=== PATIENT | female | born 1930 | race Caucasian/White ===

== ENCOUNTER 2017-06-05 15:33 | Observation (INO) | payer BC ==
--- NOTE | 2017-06-05 16:04 | Emergency Department Record ---
History of Present Illness - General Chief Complaint: Fall Injury Stated Complaint: FELL HIT HEAD/HIP/FOOT Time Seen by Provider: 06/05/17 15:54 Source: Patient Mode of Arrival: Stretcher Limitations: No limitations - History of Present Illness Initial Comments: The patient is here due to slipping and falling yesterday and injuring her R hip and foot. She has been hobbling around the house on it but the foot has been quite painful. She also did bump her head but there was no LOC or any neck pain. She has had no nausea, vomiting, CP, FRAZIER, SOB, or MARTINEZ. The patient is on Xarelto due to Afib per the patient's daughter but did not take it today. Today she was able to hobble to her chair in the living room and sat there all day until her daughter showed up. MD Complaint: Fall Onset/Timin -: Days(s) Fall From: Standing When Fall Occurred: 24 hours C[employer] Fall Witnessed: No Place Fall Occurred: Home Loss of Consciousness: None Prolonged Down Time?: No Symptoms Prior to Fall: None Location: Head Associated Symptoms: Denies - [place] Coma Scale Eye Response: (4) Open spontaneously Motor Response: (6) Obeys commands Verbal Response: (5) Oriented [place] Total: 15 - Related Data Allergies Allergy/AdvReac Type Severity Reaction Status Date / Time No Known Allergies Allergy none Verified 06/05/17 15:59 Travel Screening - Travel/Exposure Within Last 30 Days Have you traveled within the last 30 days?: No - Travel/Exposure Within Last Year Have you traveled outside the [place] in the last year?: No - Additonal Travel Details Have you been exposed to anyone with a communicable illness?: No - Travel Symptoms Symptom Screening: None Review of Systems Constitutional: Denies: Chills, Fever Eyes: Denies: Eye discharge ENT: Denies: Congestion Respiratory: Denies: Cough, Dyspnea Cardiovascular: Denies: Chest pain Endocrine: Denies: Fatigue Gastrointestinal: Denies: Abdominal pain Genitourinary: Denies: Dysuria Musculoskeletal: Denies: Arthralgia Past Medical History - SOCIAL HISTORY Smoking Status: Former smoker Alcohol Use: Heavy Alcohol Use Comment: highball nightly Drug Use: None - RESPIRATORY Hx Respiratory Disorders: No - CARDIOVASCULAR Hx Cardio Disorders: Yes Hx Abnormal EKG: Yes (Afib) Hx Cardiac Cath: Yes Hx Chest Pain: Yes Hx Hypertension: Yes - NEURO Hx Neuro Disorders: No - GI Hx GI Disorders: Yes Hx Ulcer: Yes - Hx Genitourinary Disorders: Yes Comment:: incontinence - ENDOCRINE Hx Endocrine Disorders: No - MUSCULOSKELETAL Hx Musculoskeletal Disorders: Yes Hx Arthritis: Yes - PSYCH Hx Psych Problems: Yes Hx Depression: Yes - HEMATOLOGY/ONCOLOGY Hx Hematology/Oncology Disorders: No Family Medical History Any Significant Family History?: No Hx Alcohol Use: Children Hx Cancer: Mother Hx Heart Disease: Father Hx HTN: Father Physical Exam - General General Appearance: Alert, Oriented x3, Cooperative, No acute distress - Head Head exam: Normocephalic. negative: Atraumatic (There is a very small bruise on the scalp from the fall yesterday.), Normal inspection - Eye Eye exam: Normal appearance, PERRL - Neck Neck exam: Normal inspection, Full ROM. negative: Tenderness (There is no Cspine tenderness.) - Respiratory Respiratory exam: Normal lung sounds bilaterally. negative: Respiratory distress - Cardiovascular Cardiovascular Exam: Normal heart sounds, Irregular rhythm. negative: Regular rate, Normal rhythm - GI/Abdominal GI/Abdominal exam: Soft, Normal bowel sounds. negative: Tenderness - Extremities Extremities exam: Tenderness (The R foot and R hip are quite tender with a large bruise to the dorsal R foot.), Other (There is a bruise to the posterior R iliac crest area.). negative: Normal inspection Image of Full Body: 1 - Mild bruising. Image of Feet: 1 - Significant bruising and swelling. - Neurological Neurological exam: Abnormal gait, Alert. negative: Motor sensory deficit, Normal gait - Skin Skin exam: negative: Erythema, Rash Course - Reevaluation(s) Reevaluation #1: The patient is doing well but does have significant bruising and swelling to her foot along with trouble walking. She lives alone and has no family to help her. I am concerned about her going home due to her walking issues along with being on Xarelto. I explained to her that I feel the best course of action is to admit her to the hospita, have PT and OT evaluated her and possibly place her in the swing bed program. I also discussed the case with Holley (AMANDA) and she did agree to admit the patient to the hospital. After thinking about it the patient did agree to the plan. 06/05/17 17:26 Reevaluation #2: The patient is doing very well at this time. She is resting comfortably and waiting on completing the admission process. 06/05/17 18:24 Medical Decision Making - Data Complexity MDM Data: Labs Ordered and/or Reviewed, X-Ray Ordered and/or Reviewed - Lab Data Result diagrams: 06/05/17 16:10 06/05/17 16:10 - Radiology Data Radiology results: Report reviewed (Head CT: No acute changes R Foot: Neg per rad. R Hip: No acute fx.) Disposition Disposition: Admit Clinical Impression: Inability to walk Disposition: Still a Patient at [facility] Decision to Admit: Admit from ER Decision to Admit Date: 06/05/17 Decision to Admit Time: 17:28 Accepting Physician: Gita Time Discussed w/Accepting Physician: 17:28 Condition: (2) Stable Forms: Patient Portal Access Time of Disposition: 17:28 Quality - Quality Measures Quality Measures: N/A - Blood Pressure Screening View Details: Yes Does Patient Have Any of the Following: No Blood Pressure Classification: Pre-Hypertensive BP Reading Systolic Measurement: 147 Diastolic Measurement: 89 Screening for High Blood Pressure: < Pre-Hypertensive BP, F/U Documented > [ [id number]] Pre-Hypertensive Follow-up Interventions: Referral to alternative/primary care provider.
[2017-06-05 16:17] LABS: HEMOGLOBIN 13.2 gm/dl (11.6-16.0); MEAN CORPUSCULAR HGB CONC 33.8 g/dl (32-36); MEAN PLATELET VOLUME 9.2 fl (7.4-10.4); PLATELET COUNT 174 K/uL (130-400); RED BLOOD COUNT 3.61 M/uL (3.80-5.40); RED CELL DISTRIBUTION WIDTH 13.5 % (11.5-14.5); WHITE BLOOD COUNT W/O DIFF 3.2 K/uL (4.2-12.2)
[2017-06-05 16:20] LABS: MEAN CORPUSCULAR HEMOGLOBIN 36.5 pg (27-33)
[2017-06-05 16:29] LABS: BLOOD UREA NITROGEN 12 mg/dL (8-23); CREATININE 0.4 mg/dL (0.5-0.9); EST GLOMERULAR FILTRATION RATE > 60 mL/min; GLUCOSE,RANDOM 99 mg/dL (74-109)
[2017-06-05 16:30] LABS: INR 1.09; PARTIAL THROMBOPLASTIN TIME 30.3 SECONDS (24.5-39.1); PROTHROMBIN TIME (PATIENT) 11.8 SECONDS (9.5-12.1)
[2017-06-05] MEDS ORDERED: LISINOPRIL 5 MG TABLET PO ONE ×2 (16:41→16:42)
[2017-06-05] MEDS ORDERED: NITROGLYCERIN 0.4MG SL TABLET #25 BTL SL SCH (19:12)
[2017-06-05] MEDS ORDERED: ALPRAZOLAM 0.25 MG TABLET PO PRN (19:12)
[2017-06-05] MEDS ORDERED: CITALOPRAM 20 MG TABLET PO SCH (19:12)
[2017-06-05] MEDS ORDERED: ACETAMINOPHEN 500 MG TABLET PO PRN (19:12)
[2017-06-06] MEDS: HYDROCODONE/APAP 5/325MG TABLET PO PRN ×2 (05:07→22:32)
--- NOTE | 2017-06-06 08:04 | CT SCAN REPORT ---
EXAM: HEAD CT WITHOUT CONTRAST HISTORY: FELL STRIKING PARIETAL SCALP. NO LOSS OF CONSCIOUSNESS. TECHNIQUE: Contiguous axial images from the cerebral convexities to the foramen magnum were obtained without contrast. Comparison: None. Encounter: Initial. Hand dominance: Left. FINDINGS: Moderate to extensive generalized atrophy of the brain. No acute intracranial hemorrhage, mass effect, or midline shift. No CT evidence of large acute territorial infarct. Mild decreased attenuation in the periventricular white matter of the cerebral hemispheres. The ventricles, basal cisterns, and sulci are within normal limits. The osseous structures are unremarkable. Bilateral lens implants. The paranasal sinuses are unremarkable. IMPRESSION: 1. NO ACUTE INTRACRANIAL PROCESS. 2. 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 JOB NUMBER: [id number] MTDD
[2017-06-06] MEDS ORDERED: NITROGLYCERIN 0.4MG SL TABLET #25 BTL SL PRN (08:15)
--- NOTE | 2017-06-06 08:32 | RADIOLOGY REPORT ---
EXAM: RIGHT FOOT, THREE VIEWS HISTORY: INJURED RIGHT FOOT DUE TO FALL, SLIPPED ON TILE DEIDRA. TECHNIQUE: Three views of the right foot were obtained. Comparison: None. Encounter: Initial. FINDINGS: Osteopenia. No acute fracture or dislocation. Moderate arthritic change at the right mid foot as well as the right third DIP. IMPRESSION: 1. NEGATIVE FOR ACUTE FRACTURE OF THE RIGHT FOOT. 2. MODERATE OSTEOARTHRITIC CHANGE OF THE MID FOOT WELL RIGHT THIRD DIP. JOB NUMBER: [id number] MTDD
--- NOTE | 2017-06-06 08:36 | RADIOLOGY REPORT ---
EXAM: RIGHT HIP, THREE VIEWS HISTORY: FALL, RIGHT HIP INJURY AND PAIN. TECHNIQUE: Three views of the right hip were obtained. Comparison: Pelvis CT 09/27/11. Encounter: Initial. FINDINGS: No fracture or dislocation. Mild right and moderate left osteoarthritic change of the femoroacetabular joints. The sacroiliac joints are intact. IMPRESSION: 1. NEGATIVE FOR ACUTE FRACTURE OF THE RIGHT HIP. 2. ARTHRITIC CHANGES OF THE FEMOROACETABULAR JOINTS, LEFT GREATER THAN RIGHT. JOB NUMBER: [id number] MTDD
[2017-06-06] MEDS: LISINOPRIL 5 MG TABLET PO SCH (10:21)
[2017-06-06] MEDS: SOTALOL HCL 80 MG TABLET PO SCH (10:22)
[2017-06-06] MEDS: EZETIMIBE 10 MG TABLET PO SCH (10:22)
[2017-06-06] MEDS: RIVAROXABAN 15 MG TABLET PO SCH (10:22)
[2017-06-06] MEDS: SIMVASTATIN 20 MG TABLET PO SCH (10:22)
--- NOTE | 2017-06-06 10:29 | Rehab Evaluation ---
Patient Information - Patient Information Diagnosis: R foot injury, inability to walk Ordered Treatment: PT Evaluate and Treat Status: Initial Evaluation Past Medical/Surgical Hx: PAST MEDICAL/SURGICAL HISTORY Past Surgical History Hysterectomy Cardiac Stent placement PMH - Respiratory Hx Respiratory Disorders No PMH - Cardiovascular Hx Cardiovascular Disorders Yes Hx Abnormal EKG Yes: Afib Hx Cardiac Catheterization Yes Hx Chest Pain Yes Hx Hypertension Yes PMH - Neuro Hx Neurological Disorders No PMH - GI Hx Gastrointestinal Disorders Yes Hx Ulcer Yes PMH - Hx Genitourinary Disorders Yes Comment: incontinence PMH - Endocrine Hx Endocrine Disorders No PMH - Musculoskeletal Hx Musculoskeletal Disorders Yes Hx Arthritis Yes PMH - Psych Hx Psychiatric Problems Yes Hx Depression Yes PMH - Hematology/Oncology Hx Hematology/Oncology No Disorders Premorbid Status: Detail (The patient prior to hospitalization was independent with ambulation without device and Independent with all mobility.) Social History: Detail (The patient lives alone in a ranch style home with 4 to 5 stairs with one railing at the enterance and a basement. The patient reports she does not usually go down into the basement.The patient's main bathroom is equipped with a with a walk in shower with grab bars and a regular toilet. The patient has a walker with wheels and two canes. The patient's laundry is on the first floor.) Precautions: [place], Fall - Time With Patient Total Time Spent With Patient (Min): 35 Treatment Procedures: Detail (Initial PT Evaluation) Subjective Information - Subjective Information Per Patient (The patient had complaints of R foot pain which she rated as 2/3 at the highest using 0 to 10 pain scale.) Objective Data - Mental Status Patient Orientation: Oriented x3 (The patient knew month, year, birthdate, age, and place.) - Visual Perception Appears within normal limits for therapeutic activities - ROM Not within normal limits (The patient's LE AROM is WNL except for R foot/ ankle due to pain ( Patient dorsiflexed to aproximately -15 degrees from nuetral) . The patient also exhibited minimal toe flexion and extension.) - Strength/Tone Not within normal limits (The patient's L LE strength was generally 4+to 5/5. The patient's R LE strength was hip musculature 4/5, hamstrings 4/5 , quadriceps 4+/5, ankle musculature 3-/5 due to pain with movement.) - Bed Mobility Independent (The patient was independent with supine to sit transfer.) - Transfers Independent (The patient was independent with sit to and from stand transfer and supervision for safety with toilet transfer with use of grab bar.) - Balance Balance Sitting: Good Balance Standing: Fair (The patient stood with wide base of support and was able to pull up pants and maintain balance. The patient's balance was not formally assessed using objective balance scale.) - Gait Detail (The patient ambulated with wheeled walker 2 feet x 1 and 11 feet x 2 with CG/supervision of 1 for safety and verbal cues for proper use of walker, WBAT on the R. The patient had complaints of R foot pain with weight bearing and required cueing for WBAT. The patient ambulated with less pain the second time with R ankle in an everted position and bearing weight through the heel.) Therapy Assessment - Therapy Assessment Detail (The patient was independent with bed mobility and transfers. The patient 's major limitation with ambulation is R foot pain complaints with weight bearing. Due to patient living alone, supervison for safety is recommended with mobility at home. Ongoing PT in a home setting is recommended. Short term subacute rehab would be recommended if supervision at home is not possible for the family. A tub bench is also recommended at home so the patient does not to stand for showering which may initially be painful due to weight bearing on R foot.) Problem List - Problem List Physical Therapy Problem List: Detail (1) Pain in R foot.) Goals - Goals Physical Therapy Goals: 1) The patient will ambulate independently with use of wheeled walker household distances. 2) The patient will be indpendent with all transfers and safe with sit to and from stand tranfer. 3) The patient will ambulate on 4 steps with use of railing with supervision for safety. Prognosis - Prognosis Good Plan - Plan Physical Therapy Plan: PT 1 time a day for gait training , transfer training and R LE AROM exercises.
[2017-06-06] MEDS ORDERED: CITALOPRAM 20 MG TABLET PO SCH (10:30)
--- NOTE | 2017-06-06 12:45 | Rehab Evaluation ---
Patient Information - Patient Information Diagnosis: R foot injury, inability to walk Ordered Treatment: OT Evaluate and Treat Status: Initial Evaluation Surgery: No Past Medical/Surgical Hx: PAST MEDICAL/SURGICAL HISTORY Past Surgical History Hysterectomy Cardiac Stent placement PMH - Respiratory Hx Respiratory Disorders No PMH - Cardiovascular Hx Cardiovascular Disorders Yes Hx Abnormal EKG Yes: Afib Hx Cardiac Catheterization Yes Hx Chest Pain Yes Hx Hypertension Yes PMH - Neuro Hx Neurological Disorders No PMH - GI Hx Gastrointestinal Disorders Yes Hx Ulcer Yes PMH - Hx Genitourinary Disorders Yes Comment: incontinence PMH - Endocrine Hx Endocrine Disorders No PMH - Musculoskeletal Hx Musculoskeletal Disorders Yes Hx Arthritis Yes PMH - Psych Hx Psychiatric Problems Yes Hx Depression Yes PMH - Hematology/Oncology Hx Hematology/Oncology No Disorders Premorbid Status: Detail (The patient lives alone in a 1 story house with full basement, she generally stays on the 1st floor. She has a pantry and extra refrigerator/freezer in the basement. She has 4-5 steps with 1 handrailing at the entrance. She has 3 bathrooms, one is in the basement. The bathroom she mainly uses has a walk in shower with grab bars and a standard height toilet. Her remaining bathroom has a tub/shower combination. Prior to fall she was Ind with all self cares, meal prep, laundry and home mgmt tasks. She has 2 straight canes and a 2 wheeled walker although she usually ambulates without any assistive device.) Precautions: [place], Fall - Time With Patient Total Time Spent With Patient (Min): 40 Treatment Procedures: Detail (OT eval low complexity) Subjective Information - Subjective Information Per Patient Objective Data - Pain Pain Present: Yes (2-3/10 pain in right foot) - Mental Status Patient Orientation: Oriented x3 - Visual Perception Appears within normal limits for therapeutic activities (Pt wears glasses at all times.) - ROM Within normal limits (Mitchell UE AROM WNL) - Strength/Tone Within normal limits (Mitchell UE MMT 4+/5 throughout) - Coordination Appears within normal limits for therapeutic activities - Bed Mobility Independent (Ind with supine to sit.) - Transfers Independent (Ind with sit to stand from EOB, toilet and chair using walker.) - Balance Balance Sitting: Good Balance Standing: Fair - Sensation Intact - Gait Detail (Pt able to ambulate in room with 2 wheeled walker and SBA although she c /o increased foot pain with ambulation.) - ADL's/IADL's Detail (Pt able to complete toileting Indly, doffed sock type slippers, donned pants, socks and slip on shoes Indly. Able to comb hair Indly.) Therapy Assessment - Therapy Assessment Detail (Pt presents with WNL UE function, Ind with LE dressing, SBA for mobility in room.) Problem List - Problem List Physical Therapy Problem List: Detail (1) Pain in R foot.) Occupational Therapy Problem List: Detail (1. Increased pain in right foot causing decreased functional mobility needed for safe and Ind ADLs/IADLs.) Goals - Goals Physical Therapy Goals: 1) The patient will ambulate independently with use of wheeled walker household distances. 2) The patient will be indpendent with all transfers and safe with sit to and from stand tranfer. 3) The patient will ambulate on 4 steps with use of railing with supervision for safety. Occupational Therapy Goals: 1. Assess safety and Ind with showering in sitting or standing. Prognosis - Prognosis Good Plan - Plan Physical Therapy Plan: PT 1 time a day for gait training , transfer training and R LE AROM exercises. Occupational Therapy Plan: OT 1-2 times per week until discharge to assess safety and Ind with showering and functional mobility. Pt would benefit from short IP rehab stay due to living alone unless she would have assistance for 1- 2 weeks for IADLs.
[2017-06-06] MEDS: BIMATOPROST OP SCH ×2 (21:04→21:31)
[2017-06-06] MEDS ORDERED: DIPHENHYDRAMINE HCL 25 MG CAPSULE PO PRN (21:37)
--- NOTE | 2017-06-07 06:06 | History & Physical ---
History of Present Illness - Date of Service Date of Service for History & Physical: 06/06/17 - History of Present Illness Admitting Diagnosis: 1. R Foot Injury with Inability to Walk. History of Present Illness: 87yo female with CC of falling. She has history of chronic afib on anticoagulation, HTN, CAD, arthritis, depression. Patient presented to the ED a day after she slipped and fell landing on her right hip and foot. She has been hobbling around the house on it but the foot has been quite painful. She also did bump her head but there was no LOC or any neck pain. She has had no nausea, vomiting, CP, FRAZIER, SOB, or MARTINEZ. Today she was able to hobble to her chair in the living room and sat there all day until her daughter showed up and brought her to the ED. While in the ED, patient had CT head that was negative for acute bleed or fracture. She was noted to have significant bruising over the dorsal aspect of her right mid foot along with swelling. XR of both the right hip and foot were negative for acute fractures. Patient lives alone and was unable to tolerate weight bearing therefore she was admitted for PT/OT evaluation and care coordination. 06/06/17- Patient is resting comfortably in bed. She says her foot pain is about a 2 when she is just resting, but when she tries to put weight on the foot it becomes unbearable. she worked with PT this morning and did feel that patient was high risk for another fall with her inability to bear weight on the right foot. They recommended continued therapy. Travel Screening - Travel/Exposure Within Last 30 Days Have you traveled within the last 30 days?: No - Travel/Exposure Within Last Year Have you traveled outside the [place] in the last year?: No - Additonal Travel Details Have you been exposed to anyone with a communicable illness?: No - Travel Symptoms Symptom Screening: None Review of Systems Constitutional: Denies: Chills, Fever Eyes: Denies: Eye discharge ENT: Denies: Congestion Respiratory: Denies: Cough, Dyspnea Cardiovascular: Denies: Chest pain Endocrine: Denies: Fatigue Gastrointestinal: Denies: Abdominal pain Genitourinary: Denies: Dysuria Musculoskeletal: Reports: Arthralgia (right foot and hip) Skin: Reports: Bruising Past Medical History - SOCIAL HISTORY Smoking Status: Former smoker Alcohol Use: Occasional Drug Use: None - RESPIRATORY Hx Respiratory Disorders: No - CARDIOVASCULAR Hx Cardio Disorders: Yes Hx Abnormal EKG: Yes (Afib) Hx Cardiac Cath: Yes Hx Chest Pain: Yes Hx Hypertension: Yes - NEURO Hx Neuro Disorders: No - GI Hx GI Disorders: Yes Hx Ulcer: Yes - Hx Genitourinary Disorders: Yes Comment:: incontinence - ENDOCRINE Hx Endocrine Disorders: No - MUSCULOSKELETAL Hx Musculoskeletal Disorders: Yes Hx Arthritis: Yes - PSYCH Hx Psych Problems: Yes Hx Depression: Yes - HEMATOLOGY/ONCOLOGY Hx Hematology/Oncology Disorders: No Family Medical History Any Significant Family History?: No Hx Alcohol Use: Children Hx Cancer: Mother Hx Heart Disease: Father Hx HTN: Father H&P Meds/Allergies - Allergies Allergies: Allergies Allergy/AdvReac Type Severity Reaction Status Date / Time No Known Allergies Allergy none Verified 06/05/17 15:59 - Active Medications Active Medications: Current Medications Acetaminophen (Tylenol 500mg Tab) 500 mg PO Q6H PRN PRN Reason: PAIN/TEMP Hydrocodone Bitart/Acetaminophen ([place] 5mg/325mg) 1 each PO Q6H PRN PRN Reason: Analgesia Last Admin: 06/06/17 22:32 Dose: 1 each Diphenhydramine HCl (Benadryl Capsule) 25 mg PO QHS PRN PRN Reason: INSOMNIA Last Admin: 06/06/17 22:32 Dose: 25 mg Ezetimibe (Zetia) 10 mg PO DAILY [facility] Last Admin: 06/06/17 10:22 Dose: 10 mg Lisinopril (Zestril) 2.5 mg PO DAILY [facility] Last Admin: 06/06/17 10:21 Dose: 2.5 mg Nitroglycerin (Nitrostat 0.4mg) 0.4 mg SL Q5MIN PRN PRN Reason: CHEST PAIN Last Admin: 06/06/17 11:42 Dose: 0.4 mg Non-Formulary Medication (Bimatoprost [Lumigan]) 2 drop OP QHS [facility] Last Admin: 06/06/17 21:31 Dose: 2 drop Rivaroxaban (Xarelto) 15 mg PO DAILY [facility] Last Admin: 06/06/17 10:22 Dose: 15 mg Simvastatin (Zocor) 20 mg PO DAILY [facility] Last Admin: 06/06/17 10:22 Dose: 20 mg Sotalol HCl (Betapace) 80 mg PO DAILY [facility] Last Admin: 06/06/17 10:22 Dose: 80 mg Physical Exam - Vital Signs Vital Signs: Vital Signs - Last 24 Hrs Temp Pulse Resp BP Pulse Ox 06/07/17 00:01 97.9 F 86 18 131/79 95 06/06/17 21:00 94 H 18 06/06/17 20:00 98.9 F 94 H 18 110/75 95 06/06/17 10:00 98.3 F 101 H 18 137/71 95 06/06/17 09:00 92 H 18 - General General Appearance: Alert, Oriented x3, Cooperative, No acute distress Limitations: No limitations - Head Head exam: Normocephalic. negative: Atraumatic (There is a very small bruise on the scalp from the fall yesterday.), Normal inspection - Eye Eye exam: Normal appearance, PERRL - Neck Neck exam: Normal inspection, Full ROM. negative: Tenderness (There is no Cspine tenderness.) - Respiratory Respiratory exam: Normal lung sounds bilaterally. negative: Respiratory distress - Cardiovascular Cardiovascular Exam: Normal heart sounds, Irregular rhythm. negative: Regular rate, Normal rhythm - GI/Abdominal GI/Abdominal exam: Soft, Normal bowel sounds. negative: Tenderness - Extremities Extremities exam: Tenderness (The R foot and R hip are quite tender with a large bruise to the dorsal R foot.), Other (There is a bruise to the posterior R iliac crest area.). negative: Normal inspection - Neurological Neurological exam: Abnormal gait, Alert. negative: Motor sensory deficit, Normal gait - Skin Skin exam: negative: Erythema, Rash Results - Labs Result Diagrams: 06/05/17 16:10 06/05/17 16:10 VTE H&P Assessment - Risk for VTE Risk for VTE: Yes Risk Level: High Risk Assessment Date: 06/06/17 Risk Assessment Time: 10:00 VTE Orders Placed or Will Be Placed: Yes Plan - Detailed Diagnosis and Plan (1) Inability to walk Current Visit: Yes Status: Acute Base Code: R26.2 - DIFFICULTY IN WALKING, NOT ELSEWHERE CLASSIFIED Comment: 06/06/17- Patient is unble to safely ambulate without assistance. Patient had mechanical fall. XR of the right hip and foot were negative for fracture. Large amount of bruising over the dorsal aspect right foot 2/2 being on anticoagulation for afib. -Continue treatment for sprain of the right ankle and contusion right hip. rest , elevation, avoiding weight bearing. will not place in walking boot as this is painful and cumbersome for patient. -continue PT/OT -social work consulted for discharge planning. She spoke with patient's daughter and due to some family dynamics Audra is not able to spend any amount of time with either daughter and neither are able to come spend a few days with her. Social work applied for S[place] but insurance is denying. At this point, patient is unable to safely ambulate by herself at home, therefore we will continue to monitor here along with PT/OT until she can be safely discharged. (2) Full code status Current Visit: Yes Status: Acute Base Code: Z78.9 - OTHER SPECIFIED HEALTH STATUS Comment: 06/06/17-- patient is full code (3) DVT prophylaxis Current Visit: Yes Status: Acute Base Code: [id number] - Comment: 06/06/17- continue home does of xarelto
--- NOTE | 2017-06-07 07:29 | RADIOLOGY REPORT ---
EXAM: PORTABLE CHEST HISTORY: CHEST PAIN. TECHNIQUE: A portable view of the chest was obtained. Comparison: None. FINDINGS: Cardiomegaly with atheromatous change of the thoracic aorta. Osteopenia. The lungs are clear. No pneumothorax. IMPRESSION: CARDIOMEGALY. NO ACUTE CARDIOPULMONARY PROCESS. NOT STATED PREVIOUSLY, THERE ARE OLD LEFT RIB FRACTURES. THERE APPEARS TO BE AN OLD FRACTURE DEFORMITY OF THE DISTAL LEFT CLAVICLE. JOB NUMBER: [id number] MTDD
[2017-06-07] MEDS: SOTALOL HCL 80 MG TABLET PO SCH (09:45)
[2017-06-07] MEDS: EZETIMIBE 10 MG TABLET PO SCH (09:45)
[2017-06-07] MEDS: LISINOPRIL 5 MG TABLET PO SCH (09:45)
[2017-06-07] MEDS: SIMVASTATIN 20 MG TABLET PO SCH (09:45)
[2017-06-07] MEDS: RIVAROXABAN 15 MG TABLET PO SCH (09:45)
[2017-06-07] MEDS: HYDROCODONE/APAP 5/325MG TABLET PO PRN (13:22)
--- NOTE | 2017-06-07 14:05 | Physical Therapy Tx Note ---
Physical Therapy Tx Note - Treatment Note Tolerated: Fair Total Time Spent With Patient: 20 Physical Therapy Tx Note: Detail (The patient was seen for 2 short sessions with family present. The patient was independent with supine to and from sit transfer. The patient was independent with sit to stand with complaints of R foot pain. The patient initially refused to ambulate due to pain in R foot. The patient was seen aproximately 1 hr. later and ambulated 20 feet x 1 with boot on RLE with wheeled walker and supervision for safety only. The patient continued to require verbal cues for keeping walker near her for sit to and from stand. during the second session the patient had less complaints of pain with ambulation and the patient achieved sit to stand bearing weight through R LE without pain complaints. The patient is to receive home PT upon discharge. The patient was instructed to complete ankle pumps and toe wiggles to decrease edema and pain in R foot.) Physical Therapy Problem List: Detail (1) Pain in R foot.) Physical Therapy Goals: 1) The patient will ambulate independently with use of wheeled walker household distances. 2) The patient will be indpendent with all transfers and safe with sit to and from stand tranfer. 3) The patient will ambulate on 4 steps with use of railing with supervision for safety. Physical Therapy Plan: PT 1 time a day for gait training , transfer training and R LE AROM exercises.
--- NOTE | 2017-06-07 17:18 | Discharge Note ---
VTE H&P Assessment - Risk for VTE Risk for VTE: Yes Risk Level: High Risk Assessment Date: 06/06/17 Risk Assessment Time: 10:00 VTE Orders Placed or Will Be Placed: Yes Discharge Medications - Discharge Medications Prescriptions: Hydrocodone/Acetaminophen [[place] 5-325 Tablet] 1 each PO Q6HR #30 tablet Home Medications: Ambulatory Orders Bimatoprost [Lumigan] 2 drop OP DAILY 10/23/14 [Last Taken 06/04/17] Ezetimibe [Zetia] 10 mg PO DAILY 10/23/14 [Last Taken 06/04/17] Lisinopril [Zestril] 2.5 mg PO DAILY 10/23/14 [Last Taken 06/04/17] Nitroglycerin [Nitrostat] 0.4 mg SL ASDIR 10/23/14 [Last Taken 06/04/17] Rivaroxaban [Xarelto] 15 mg PO DAILY 10/23/14 [Last Taken 06/04/17] Simvastatin [Zocor] 20 mg PO DAILY 10/23/14 [Last Taken 06/04/17] Sotalol HCl [Sotalol] 80 mg PO DAILY 10/23/14 [Last Taken 06/04/17] Alprazolam [Xanax] 0.5 mg PO DAILY PRN tab 09/02/15 [Last Taken 06/04/17] Citalopram Hydrobromide [Celexa] 20 mg PO QD tab 09/02/15 [Last Taken 06/04/17] Hydrocodone/Acetaminophen [[place] 5-325 Tablet] 1 each PO Q6HR #30 tablet [Last Taken Unknown] Discharge Note - Date Date of Discharge Note: 06/07/17 Condition: (2) Stable Additional Instructions: Follow up with Dr. Galvez Monday, Jun 14, 11AM He works very closely with Dr. Lorenzo and you have seen him in the past. Dr. Lorenzo is out of the office until the end of June. [facility] will be seeing you at home for nursing and physical/ occupational therapy. They can be reached at [phone]. Wear the immobilizer boot when walking and use a walker Prescriptions: Hydrocodone/Acetaminophen [[place] 5-325 Tablet] 1 each PO Q6HR #30 tablet Referrals: BESSY WARE [Primary Care Provider] - Forms: Patient Portal Access Activity at Discharge: Increase Activity as Tolerated
--- NOTE | 2017-06-08 12:40 | Discharge Summary ---
DATE OF DISCHARGE: 06/07/2017 DISCHARGE DIAGNOSES: 1. Contusion of the right foot. 2. Contusion of the right hip. 3. History of atrial fibrillation, on Xarelto. 4. Contusion of the head. CT scan was negative. ATTENDING PHYSICIAN: Leo Kaye DO REASON FOR HOSPITALIZATION: Fall, injury to the right hip and right foot. This 87-year-old female presented from EMS with an injury to her foot due to a fall. She was walking at home when she slipped on some tile floor. She was not wearing shoes at the time. She also sustained injuries and bruising to the right hip. She hit the left rear side of her head and has a small bruise. She denies loss of consciousness. She has been up walking on her foot since the incident. Her foot presents swollen and severe bruising. The fall happened one day prior to arrival. She was evaluated in the ER by Dr. Jiang, admitted to the hospital with a diagnosis of inability to walk, contusion of the right foot, right hip, and right head. SIGNIFICANT FINDINGS: CT scan of the head was negative. CT scan of the right foot was negative. CT scan of the right hip was negative. Portable chest was done in the hospital showing cardiomegaly. No acute cardiopulmonary process not stated previously. There are old left rib fractures. There appears to be an old fracture deformity of the distal left clavicle. Laboratory with WBC 3200, hemoglobin 13.2. The PT/INR was 1.09, PTT is 30. Electrolytes are good. Potassium is 4.4. Sodium 135, chloride 97, BUN 12, creatinine 0.4. HOSPITAL COURSE: The patient gradually got better and she got used to walking with the boot on. She is walking reasonably well on the day of discharge. She has to walk with a walker. Walks slowly. First couple of steps are painful but then she gets going. CONDITION ON DISCHARGE: Improved and better than when she was admitted. DISCHARGE INSTRUCTIONS: Follow up with her family doctor in 1 week, 06/14/2017. Dr. Galvez is covering for Dr. Karla Andujar. Wear the boot when she is not sleeping or when she is walking. I recommended a family member stay with her or she stay with a family member but the family member said that was not possible, so we will set up a visiting nurse to go in for physical therapy and occupational therapy. Continue her home medications of sotalol 80 mg daily, simvastatin 20 mg at h.s., Xarelto 50 mg daily, Nitrostat p.r.n., lisinopril 2.5 mg daily, Zetia 10 mg daily, Celexa 20 mg daily, Lumigan drops in the eyes daily, and Xanax p.r.n. [place] 5 mg q.4-6 h. p.r.n. pain, Tylenol for mild pain. CC: Dr. Karla SELF
== END 2017-06-07 18:46 | disposition home health service (06) ==
LOC: ER 15:33 → MEDSURG 18:48 → INTOOBSV 18:48
PROVIDERS: ADMIT Internal Medicine; ATTEND Internal Medicine
DX: S93.401A Sprain of unspecified ligament of right ankle, initial encounter (principal); Y92.010 Kitchen of single-family (private) house as the place of occurrence of the external cause; W18.39XA Other fall on same level, initial encounter; S90.31XA Contusion of right foot, initial encounter; S70.01XA Contusion of right hip, initial encounter; S00.03XA Contusion of scalp, initial encounter; I48.91 Unspecified atrial fibrillation; Z79.01 Long term (current) use of anticoagulants; I10 Essential (primary) hypertension; I25.10 Atherosclerotic heart disease of native coronary artery without angina pectoris; Z87.891 Personal history of nicotine dependence; R26.2 Difficulty in walking, not elsewhere classified
CPT/HCPCS: 70450; 71010; 80048; 85027; 85610; 85730; 97165; 99217; 99220; 99285